=== PATIENT | female | born 1955 | race African-American/Black ===

== ENCOUNTER 2021-01-18 13:57 | Inpatient (IN) | payer OTHER ==
[2021-01-18] MEDS ORDERED: Magnesium 5 GM/10 ML Abboject SYRINGE ONE (14:00)
[2021-01-18] MEDS ORDERED: EPINEPHrine 1 MG/10 ML Abboject SYRINGE ONE (14:00)
[2021-01-18] MEDS ORDERED: Atropine Sulfate 1 mg/10 ml Syringe ONE (14:00)
[2021-01-18] MEDS ORDERED: DOPamine/D5W 400 mg/250 ml PREMIX ONE (14:00)
[2021-01-18] MEDS ORDERED: Naloxone HCl 0.4 mg/ml Vial ONE ×2 (14:00→14:36)
[2021-01-18] MEDS ORDERED: Sodium Bicarb 50 MEQ/50 ML Abboject 8.4% SYRINGE ONE (14:00)
[2021-01-18] MEDS ORDERED: Calcium Chloride 1 GM/10 ML Abboject SYRINGE ONE (14:00)
[2021-01-18] MEDS ORDERED: Amiodarone 150 MG/3 ML VIAL ONE (14:00)
[2021-01-18 14:50] LABS: Hemoglobin 8.9 g/dL (12.0-16.0); Mean Corpuscular HGB CONC 30.1 g/dL (32.0-36.0); Mean Corpuscular Volume 83.2 fL (78.0-98.0); Mean Platelet Volume 10.7 fL (7.4-10.4); Platelet Count 163 thou/uL (130-400); RBC Distribution Width 17.5 % (11.5-14.5); Red Blood Cell (RBC) Count 3.57 mill/uL (4.20-5.40); White Blood Cell (WBC) Count 31.9 thou/uL (4.8-10.8)
[2021-01-18] MEDS ORDERED: fentaNYL Citrate/PF 2,000 MCG in Sodium Chloride 0.9% 60 ML IV SCH (15:00)
[2021-01-18 15:03] LABS: INR-International Normal Ratio 1.8; Prothrombin Time 21.3 sec (12.0-14.7)
[2021-01-18 15:04] LABS: PTT 64.6 sec (22.9-36.1)
[2021-01-18 15:10] LABS: Anisocytosis SLIGHT = 6-15 cells (100X) (0-5/hpf); Band 7 % (5-11); Burr Cells SLIGHT = 2-5 cells (100X) (0-1/hpf); Lymphocytes 32 % (21-51); MDiff Complete? YES; Metamyelocyte 6 % (0-0); Monocytes 3 % (0-10); Myelocyte 2 % (0-0); Neutrophil 48 % (42-75); Nucleated RBC 8 % (0); Platelet Morphology Comment Appears Adequate; Polychromasia MODERATE = 3-4 cells (100X) (0-2/hpf); Reactive Lymphocytes 2 % (0-10); Schistocytes SLIGHT = 2-5 cells (100X) (0-1/hpf)
[2021-01-18 15:22] LABS: ALT (SGPT) 76 U/L (8-55); AST (SGOT) 183 U/L (5-34); Albumin 2.2 g/dL (3.4-4.8); Alkaline Phosphatase 110 U/L (40-110); BUN (Urea Nitrogen) 44 mg/dL (9.8-20.1); Bilirubin, Total 0.9 mg/dL (0.2-1.2); Calc. Creatinine Clearance 0 mL/min (70-130); Calcium 10.7 mg/dL (7.8-10.44); Chloride 80 mmol/L (98-107); Globulin 3.1 g/dL (2.4-3.5); Glucose 305 mg/dL (80-115); Lipase 32 U/L (8-78); Magnesium 4.7 mg/dL (1.6-2.6); Potassium 4.5 mmol/L (3.5-5.1); Protein, Total 5.3 g/dL (5.8-8.1)
[2021-01-18 15:29] LABS: Carbon Dioxide Less than 8 mmol/L (23-31); Sodium 113 mmol/L (136-145)
[2021-01-18 15:31] LABS: Actual Bicarbonate (HCO3a) 8.6 mEq/L (22-28); Analyzer IN Cardio ER; CO2 Tension 43.7 mmHg (35.0-45.0); Calcium, Ionized (arterial) 1.57 mmol/L (1.12-1.30); Carboxyhemoglobin (COHb) 0.4 gm% (0.0-3.0); Hemoglobin (Hb) 9.3 g/dL (12.0-16.0); Potassium - ABG Lab 4.16 mmol/L (3.70-5.30); pH, Arterial 6.91 (7.35-7.45)
[2021-01-18 15:31] LABS: Phosphorus 9.1 mg/dL (2.3-4.7)
[2021-01-18 15:32] LABS: ALV-art Gradient 577.375 mmHg (0-20); Puncture Site RRA
[2021-01-18] MEDS ORDERED: Vancomycin 1 GM/200 ML BAG ONE (15:40)
[2021-01-18] MEDS ORDERED: Cefepime 2 GM VIAL ONE (15:40)
[2021-01-18 15:45] LABS: SARS-CoV-2 NAA Rapid Test DETECTED (NotDetected)
[2021-01-18 16:00] LABS: CKMB 16.3 ng/mL (0-6.6)
[2021-01-18 16:41] LABS: Bilirubin Negative (Negative); Blood, Urine Trace (Negative); Clarity Turbid (Clear); Glucose, Urine (Dipstick) 50 mg/dL (Negative); Ketone, Urine Negative (Negative); Leukocyte Negative Leu/uL (Negative); Nitrite Negative (Negative); Protein, Urine (Dipstick) 300 mg/dL (Neg-Trace); RBC/HPF 0-3 HPF (0-3); Specific Gravity, Urine 1.016 (1.002-1.036); Urobilinogen Normal mg/dL (Less than 2); WBC/HPF 0-3 HPF (0-3)
[2021-01-18 16:48] LABS: Amphetamine Not Detected (NotDetected); Bacteria/HPF 1+ HPF (None Seen); Barbiturates Screen Not Detected (NotDetected); Benzodiazepine Screen Not Detected (NotDetected); Cocaine Metabolite Screen Not Detected (NotDetected); Methadone Not Detected (NotDetected); Methamphetamine Not Detected (NotDetected); Opiate Screen Not Detected (NotDetected); Oxycodone Screen Not Detected (NotDetected); Phencyclidine (PCP) Not Detected (NotDetected); THC/Cannabinoid Screen Not Detected (NotDetected); Tricyclic Screen Not Detected (NotDetected)
[2021-01-18] MEDS ORDERED: Dextrose 5% in Water 1,000 ML IV PRN (17:19)
[2021-01-18] MEDS ORDERED: HumaLOG 300 UNITS/3 ML VIAL SC PRN ×2 (17:19)
[2021-01-18] MEDS ORDERED: Dextrose 50% Abboject 50 ML SYRINGE SLOW IVP PRN (17:19)
[2021-01-18] MEDS ORDERED: Norepinephrine 8 MG/0.9% NS 250 ML IVPB SCH (17:30)
[2021-01-18] MEDS ORDERED: DOPamine 400 MG/D5W 250 ML 250 ML IVPB SCH (17:30)
[2021-01-18] MEDS ORDERED: Sodium Chloride 0.9% 1,000 ML IV SCH ×2 (17:30→20:13)
[2021-01-18 18:40] LABS: Lactic Acid 10.1 mmol/L (0.5-2.2)
[2021-01-18 19:19] LABS: Anion Gap 24 mmol/L (10-20); BUN (Urea Nitrogen) 43 mg/dL (9.8-20.1); Calc. Creatinine Clearance 0 mL/min (70-130); Calcium 8.8 mg/dL (7.8-10.44); Carbon Dioxide 15 mmol/L (23-31); Chloride 81 mmol/L (98-107); Glucose 328 mg/dL (80-115); Potassium 3.6 mmol/L (3.5-5.1); Sodium 116 mmol/L (136-145)
[2021-01-18] MEDS ORDERED: Heparin 10,000 UNITS/ 10 ML VIAL ONE (20:29)
[2021-01-18] MEDS: Heparin 5,000 UNITS/ML VIAL SC SCH (20:30)
[2021-01-18] MEDS ORDERED: Albumin 25% 25 GM/100 ML BOT IVPB SCH (21:00)
[2021-01-18] MEDS ORDERED: Norepinephrine 8 MG/0.9% NS 250 ML ONE (22:18)
[2021-01-18 22:25] VITALS: BP 114/67
[2021-01-18 22:40] VITALS: BMI 50.6
[2021-01-19] MEDS ORDERED: EPINEPHrine 1 MG/10 ML Abboject SYRINGE ONE (01:59)
[2021-01-19] MEDS ORDERED: EPINEPHrine 4 MG in Dextrose 5% in Water 250 ML IV SCH (02:30)
[2021-01-19] MEDS: Fentanyl BOLUS 250 ML IVPB PRN ×2 (03:21→05:29)
[2021-01-19] MEDS ORDERED: Cefepime 1 GM in Sodium Chloride 0.9% 100 ML IVPB SCH (04:00)
[2021-01-19 04:45] LABS: Anion Gap 24 mmol/L (10-20); BUN (Urea Nitrogen) 47 mg/dL (9.8-20.1); Calc. Creatinine Clearance 28 mL/min (70-130); Calcium 8.2 mg/dL (7.8-10.44); Carbon Dioxide 15 mmol/L (23-31); Chloride 81 mmol/L (98-107); Glucose 403 mg/dL (80-115); Potassium 4.8 mmol/L (3.5-5.1)
[2021-01-19] MEDS ORDERED: Cefepime 1 GM VIAL ONE (04:50)
[2021-01-19 04:57] LABS: Sodium 115 mmol/L (136-145)
[2021-01-19 05:50] LABS: Anisocytosis SLIGHT = 6-15 cells (100X) (0-5/hpf); Band 6 % (5-11); Hemoglobin 7.8 g/dL (12.0-16.0); Hypochromia SLIGHT = 6-15 cells (100X) (0-5/hpf); Lymphocytes 7 % (21-51); MDiff Complete? YES; Mean Corpuscular HGB CONC 31.2 g/dL (32.0-36.0); Mean Corpuscular Volume 80.2 fL (78.0-98.0); Mean Platelet Volume 9.8 fL (7.4-10.4); Monocytes 5 % (0-10); Myelocyte 3 % (0-0); Neutrophil 79 % (42-75); Nucleated RBC 11 % (0); Platelet Count 123 thou/uL (130-400); Platelet Morphology Comment Appears Decreased; RBC Distribution Width 17.9 % (11.5-14.5); Schistocytes SLIGHT = 2-5 cells (100X) (0-1/hpf); White Blood Cell (WBC) Count 33.9 thou/uL (4.8-10.8)
[2021-01-19] MEDS ORDERED: Albumin 25% 25 GM/100 ML BOT IVPB SCH (06:00)
[2021-01-19 06:13] VITALS: TEMP 97.2
[2021-01-19] MEDS ORDERED: Norepinephrine 8 MG/0.9% NS 250 ML ONE (07:01)
[2021-01-19] MEDS ORDERED: HumaLOG 300 UNITS/3 ML VIAL ONE (07:06)
[2021-01-19] MEDS ORDERED: Sodium Chloride 0.9% 1,000 ML IV SCH (07:18)
[2021-01-19] MEDS ORDERED: Propofol 1,000 MG/100 ML VIAL IV ONE (07:37)
[2021-01-19] MEDS ORDERED: Dexamethasone 10 MG/ML VIAL SLOW IVP SCH (09:00)
[2021-01-19 09:10] LABS: Actual Bicarbonate (HCO3a) 11.6 mEq/L (22-28); Analyzer IN Cardio ER; Base Excess (BEa) -17.8 mEq/L (-2.0 to +3.0); CO2 Tension 43.2 mmHg (35.0-45.0); Calcium, Ionized (arterial) 1.07 mmol/L (1.12-1.30); Carboxyhemoglobin (COHb) 0.3 gm% (0.0-3.0); Hemoglobin (Hb) 8.6 g/dL (12.0-16.0); O2 Tension (PaO2), arterial 60.8 mmHg (> 80.0); Potassium - ABG Lab 5.37 mmol/L (3.70-5.30)
[2021-01-19 09:13] LABS: Puncture Site LRA; pH, Arterial 7.05 (7.35-7.45)
[2021-01-19 09:14] LABS: Peep/CPAP 12.5 cmH2O
[2021-01-19] MEDS: Heparin 5,000 UNITS/ML VIAL SC SCH (11:11)
[2021-01-19] MEDS ORDERED: DOPamine 400 MG/D5W 250 ML 250 ML ONE (12:45)
[2021-01-19] MEDS ORDERED: Lantus 1000 UNITS/10 ML VIAL SC SCH ×2 (13:04→13:30)
[2021-01-19] MEDS ORDERED: Vancomycin 1 GM in Premix Bag 1 BAG IVPB SCH (20:00)
[2021-01-20] MEDS ORDERED: Lantus 1000 UNITS/10 ML VIAL SC SCH (09:00)
== END 2021-01-19 15:55 | disposition expired | DRG 871 ==
LOC: ERS 13:57 → ERHOLD 15:00
PROVIDERS: ADMIT Emergency Medicine; ATTEND Emergency Medicine
PROC: 5A1935Z Respiratory Ventilation, Less than 24 Consecutive Hours (ICD-10-PCS; principal; 2021-01-18)
PROC: 8E0ZXY6 Isolation (ICD-10-PCS; 2021-01-18)
PROC: 5A12012 Performance of Cardiac Output, Single, Manual (ICD-10-PCS; 2021-01-18)
PROC: 5A2204Z Restoration of Cardiac Rhythm, Single (ICD-10-PCS; 2021-01-18)
PROC: 3E033XZ Introduction of Vasopressor into Peripheral Vein, Percutaneous Approach (ICD-10-PCS; 2021-01-18)
PROC: 06HY33Z Insertion of Infusion Device into Lower Vein, Percutaneous Approach (ICD-10-PCS; 2021-01-18)
DX: A41.89 Other specified sepsis (principal); U07.1 COVID-19; J12.82 Pneumonia due to coronavirus disease 2019; J96.01 Acute respiratory failure with hypoxia; R65.21 Severe sepsis with septic shock; E87.1 Hypo-osmolality and hyponatremia; G93.1 Anoxic brain damage, not elsewhere classified; J44.0 Chronic obstructive pulmonary disease with (acute) lower respiratory infection; I47.2 Ventricular tachycardia; Z68.43 Body mass index [BMI] 50.0-59.9, adult; N17.9 Acute kidney failure, unspecified; Z66 Do not resuscitate; E11.9 Type 2 diabetes mellitus without complications; E78.5 Hyperlipidemia, unspecified; G89.29 Other chronic pain; I46.8 Cardiac arrest due to other underlying condition; I50.9 Heart failure, unspecified; I11.0 Hypertensive heart disease with heart failure; E83.39 Other disorders of phosphorus metabolism; D64.9 Anemia, unspecified; E89.0 Postprocedural hypothyroidism; E88.09 Other disorders of plasma-protein metabolism, not elsewhere classified; Z96.651 Presence of right artificial knee joint; Z95.1 Presence of aortocoronary bypass graft; Z79.899 Other long term (current) drug therapy; Z78.1 Physical restraint status; Z98.890 Other specified postprocedural states; Z88.0 Allergy status to penicillin; Z88.8 Allergy status to other drugs, medicaments and biological substances; Z91.040 Latex allergy status; Z83.3 Family history of diabetes mellitus; Z82.49 Family history of ischemic heart disease and other diseases of the circulatory system; Z83.1 Family history of other infectious and parasitic diseases; Z79.82 Long term (current) use of aspirin; Z79.890 Hormone replacement therapy; Z79.51 Long term (current) use of inhaled steroids; Z79.4 Long term (current) use of insulin; Z88.6 Allergy status to analgesic agent; Z99.81 Dependence on supplemental oxygen; E66.01 Morbid (severe) obesity due to excess calories; Z87.891 Personal history of nicotine dependence
CPT/HCPCS: 0240U; 36415; 36416; 36556; 36600; 51702; 70450; 71045; 80048; 80053; 80306; 81003; 81015; 82553; 82805; 83605; 83690; 83735; 83880; 83930; 83935; 84100; 84484; 85025; 85610; 85730; 87040; 87149; 92950; 93005; 94002; 96365; 96366; 96367; 96368; 96374; 96375; 96376; 99292; J0171; J0282; J0461; J0692; J1100; J1265; J1644; J1815; J1956; J2310; J2704; J3010; J3370; J3475; J3490; J7070; P9047